=== PATIENT | male | born 1965 | race Caucasian/White ===

== ENCOUNTER 2016-11-09 09:24 | Emergency (ER) | payer OTHER ==
[2016-11-09 09:29] VITALS: BP 114/79; PULSE 100; TEMP 98.6; BMI 26.1
--- NOTE | 2016-11-09 09:43 | PDOC ---
History of Present Illness - General Chief Complaint: Back Pain Stated Complaint: BACK PAIN Time Seen by Provider: 11/09/16 09:43 History Source: Patient Exam Limitations: No Limitations - History of Present Illness Initial Comments: 11/09/16 09:43 CHIEF COMPLAINT: Lower back pain HISTORY OF PRESENT ILLNESS: 51-year-old male, history of low back pain for 2 months, was seen by Dr. Engel who started him on ibuprofen and Flexeril states that sometimes it works and sometimes it doesn't for the last 24 hours pain has increased to left lower back, medication not working. No neurosensory deficits, no bowel or bladder difficulty incontinence or urinary retention, no saddle anesthesia, no footdrop. No history of IVDU or history of cancer. REVIEW OF SYSTEMS: GENERAL: Afebrile, denies any weakness RESPIRATORY: No cough, wheezing, or hemoptysis. CARDIAC: No chest pain or shortness of breath MUSCULOSKELETAL: Pain to left lower back radiating down left leg. No point tenderness. SKIN : No erythema, no bruising, no deformity. GI/: Denies any abdominal pain, no urinary difficulty, incontinence or urinary retention. RECTAL: Denies any difficulty this A.m. NEUROLOGICAL: Denies any numbness or tingling. No neurosensory deficits. PHYSICAL EXAM: GENERAL: The patient is awake, alert, and fully oriented, in no acute distress. RESPIRATORY: Lungs clear bilaterally, no rhonchi wheezes or crackles CARDIAC: S1-S2 audible, no murmur rub or gallop MUSCULOSKELETAL: Pain to left lower back radiating down left leg, no tingling or sensory deficit. Less than 2 second cap refill, +4 popliteal and pedal pulses. GI/: Abdomen soft, nontender, nondistended. No rebound tenderness. No masses palpable. MUSCULOSKELETAL: No spinal point tenderness. Normal reflexive and no deficits to sensation or strength. RECTAL: Normal Rectal Tone. SKIN: Warm, Dry, normal turgor, no erythema, no edema no bruising. Past History - Past Medical History Allergies/Adverse Reactions: Allergies Allergy/AdvReac Type Severity Reaction Status Date / Time No Known Allergies Allergy Verified 11/09/16 09:27 Home Medications: Ambulatory Orders Methylprednisolone [Medrol Dose Ramón] 4 mg PO ASDIR #21 tablet 11/09/16 Other medical history: none - Psycho/Social/Smoking Cessation Hx Anxiety: No Suicidal Ideation: No Smoking History: Never smoked Have you smoked in the past 12 months: No Information on smoking cessation initiated: No Hx Alcohol Use: No Drug/Substance Use Hx: No Substance Use Type: None *Physical Exam - Vital Signs Last Vital Signs Temp Pulse Resp BP Pulse Ox 98.6 F 100 H 18 114/79 100 11/09/16 09:27 11/09/16 09:27 11/09/16 09:27 11/09/16 09:27 11/09/16 09:27 Medical Decision Making - Medical Decision Making 11/09/16 09:51 A/P: Patient with lower back pain, pain to left lower back radiating down left leg, has been taking Motrin and Flexeril without resolve. Patient understands that he needs to follow up with his PMD for follow-up MRI, he will follow-up on Thursday while in emergency department today we will try to get his pain and control so he is comfortable. Toradol 60 mg IM, Valium 5 mg by mouth we will reevaluate 11/09/16 10:23 Feels better after medication, will dc patient on medrol dosepack. Follow up with primary care doctor for further evaluation pain persists discontinue Motrin , Flexeril as needed. I discussed the physical exam findings, ancillary test results and final diagnoses with the patient. I answered all of the patient's questions. The patient was satisfied with the care received and felt comfortable with the discharge plan and treatment plan. The patient will call to arrange follow-up and will return to the Emergency Department with any new, persistent or worsening symptoms. *DC/Admit/Observation/Transfer Diagnosis at time of Disposition: Low back pain Qualifiers: Chronicity: acute Back pain laterality: left Sciatica presence: without sciatica Qualified Code(s): M54.5 - Low back pain - Discharge Dispostion Disposition: HOME Condition at time of disposition: Stable Admit: No - Prescriptions Prescriptions: Methylprednisolone [Medrol Dose Ramón] 4 mg PO ASDIR #21 tablet - Referrals Referrals: Magdi Engel [Primary Care Provider] - - Patient Instructions Printed Discharge Instructions: DI for Low Back Pain Additional Instructions: 1. Please return to the emergency department with any numbness, tingling, weakness, numbness or tingling to groin or legs, or loss of bowel or bladder function. 2. Use pain medication as ordered. 3. Please is to followup with PMD for evaluation within a week if no improvement. 4. Ice or heat 5. Refrain from lifting anything above 10 pounds, until pain resolved.
[2016-11-09] MEDS ORDERED: KETOROLAC TROMETHAMINE 60 MG/2 ML VIAL IM ONE (09:48)
[2016-11-09] MEDS ORDERED: diazePAM 5 MG TABLET PO ONE (09:48)
[2016-11-09] MEDS ORDERED: KETOROLAC TROMETHAMINE 60 MG/2 ML VIAL ONE (09:50)
[2016-11-09] MEDS ORDERED: diazePAM 5 MG TABLET ONE (09:50)
== END 2016-11-09 10:31 | disposition home or self-care (01) ==
LOC: JERFT 09:24
PROC: 3E0233Z Introduction of Anti-inflammatory into Muscle, Percutaneous Approach (ICD-10-PCS; principal; 2016-11-09)
DX: M54.5 Low back pain (principal)
CPT/HCPCS: 96372; 99281-25

== ENCOUNTER 2017-05-13 09:47 | Emergency (ER) | payer OTHER ==
[2017-05-13 09:56] VITALS: BP 133/86; PULSE 91; TEMP 98; BMI 26.6
[2017-05-13] MEDS ORDERED: KETOROLAC TROMETHAMINE 60 MG/2 ML VIAL IM ONE (11:41)
[2017-05-13] MEDS ORDERED: KETOROLAC TROMETHAMINE 60 MG/2 ML VIAL ONE (11:46)
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
== END 2017-05-13 12:07 | disposition home or self-care (01) ==
LOC: JERFT 09:47
PROC: 3E0233Z Introduction of Anti-inflammatory into Muscle, Percutaneous Approach (ICD-10-PCS; principal; 2017-05-13)
DX: M54.5 Low back pain (principal); V73.5XXA Driver of bus injured in collision with car, pick-up truck or van in traffic accident, initial encounter; Y92.488 Other paved roadways as the place of occurrence of the external cause; Y93.89 Activity, other specified; Y99.8 Other external cause status
CPT/HCPCS: 99281-25